=== PATIENT | female | born 1950 | race American Indian/Alaskan Native ===

== ENCOUNTER 2021-10-22 19:43 | Emergency (ER) | payer MEDICAID ==
[2021-10-22 20:02] VITALS: BP 115/79
[2021-10-22 20:30] LABS: Basophils % (Auto) 0.1 % (0.0-1.8); Eosinophils % (Auto) 0.1 % (0.0-4.3); Hematocrit 38.3 % (30.3-42.9); Mean Corpuscular HGB Conc 34 % (30-34); Mean Corpuscular Volume 87 fl (79-97); Monocytes # (Auto) 0.6 K/mm3 (0.0-0.8); Monocytes % (Auto) 4.5 % (0.0-7.3); Platelet Count 302 K/mm3 (140-440); Red Cell Distribution Width 13.4 % (13.2-15.2)
[2021-10-22 20:54] LABS: Albumin 4.1 g/dL (3.9-5); Calcium 9.7 mg/dL (8.4-10.2)
--- NOTE | 2021-10-22 21:13 | XRay Report ---
CHEST 2 VIEWS INDICATION / CLINICAL INFORMATION: Chest Pain. COMPARISON: None available. FINDINGS: SUPPORT DEVICES: None. HEART / MEDIASTINUM: There is mediastinal widening. The thoracic aorta appears aneurysmal lateral jacey st radiograph. LUNGS / PLEURA: No significant pulmonary or pleural abnormality. No pneumothorax. ADDITIONAL FINDINGS: 2.5 x 1.7 cm density along the right lateral breast. IMPRESSION: 1. Mediastinal widening with apparent thoracic aortic aneurysm. Further evaluation with dedicated CTA of the chest timed for evaluation of the aorta is recommended to evaluate for acute aortic injury. 2. 2.5 x 1.7 cm density within the right lateral breast, possibly representing breast mass. Mammograp hic evaluation is recommended per CRITICAL RESULT: Mediastinal widening with thoracic aortic aneurysm. Time of Discovery (SENIOR SOFTWARE QUALITY ENGINEER/CDT): 8:04 PM Time of Communication (SENIOR SOFTWARE QUALITY ENGINEER/CDT): 8:07 PM Licensed Practitioner Receiving Report: Anton Garcia NP Read-Back Performed: Yes. Signer Name: Wayne Mendez MD Signed: 10/22/2021 9:09 PM Workstation Name: [id number]
[2021-10-22] MEDS ORDERED: SODIUM CHLORIDE 0.9% 1000 ML 1,000 ML IV ONE (21:31)
[2021-10-22] MEDS ORDERED: ONDANSETRON 4 MG/2 ML INJ IV ONE (21:32)
[2021-10-22] MEDS ORDERED: MORPHINE 4 MG/1 ML INJ IV ONE (21:32)
[2021-10-22] MEDS ORDERED: dexAMETHasone 4 MG/ML VIAL IV ONE (23:40)
[2021-10-22] MEDS ORDERED: diphenhydrAMINE 50 MG/ML VIAL IV ONE (23:41)
--- NOTE | 2021-10-23 00:01 | Cat Scan Report ---
CTA CHEST WITH CONTRAST INDICATION / CLINICAL INFORMATION: pain. TECHNIQUE: Axial CT images were obtained through the chest after injection of IV contrast. 3 plane HI P and/or 3D reconstructions were produced. All CT scans at this location are performed using CT dose reduction for ALARA by means of automated exposure control. COMPARISON: None available. FINDINGS: VASCULAR FINDINGS: PULMONARY ARTERY: Pulmonary artery is normal in size. No pulmonary artery embolus is demonstrated.. THORACIC AORTA: Suboptimal opacification secondary to evaluation for pulmonary artery embolus. Study performed without gated technique. The proximal arch is not well-visualized. Intramural hematoma/dis section extends from the proximal arch through the mid descending thoracic aorta. This measures up to 10 mm in thickness. The descending thoracic aorta is minimally enlarged measuring 3.7 [address] ansverse dimension mid chest. Distal arch measures up to 4 cm. Allowing for motion, the proximal arch measures approximately 4.1 cm. CORONARY ARTERY CALCIFICATION: Absent -- None. NONVASCULAR FINDINGS: LOWER NECK: Soft tissues and musculature of the lower neck demonstrate no significant abnormality. Sm all calcified thyroid nodules are suggested bilaterally. HEART: Heart size is normal. There is a small to moderate amount of high attenuation fluid compatible with hemopericardium measuring up to 10-11 mm in thickness. No specific abnormality of the heart is present to suggest cardiac etiology of hemopericardium. No ventricular aneurysm. No pseudoaneurysm. MEDIASTINUM / MRAIA T: No significant abnormality. ESOPHAGUS: No significant abnormality. LYMPH NODES: No adenopathy within the axilla, mediastinum, or maria t. LUNGS: No acute air space or interstitial disease. PLEURA: No pleural effusion. No pneumothorax. THORACIC SOFT TISSUES: No significant abnormality of the chest wall or upper thoracic musculature. BONES: No significant skeletal abnormalities. ADDITIONAL CHEST FINDINGS: None. UPPER ABDOMEN: No significant abnormality. IMPRESSION: 1. Probable type A aortic dissection with evidence of hemopericardium. Intramural hematoma/thin false lumen as detailed. Motion and nongated technique as well as timing of contrast bolus precludes furth er evaluation. 2. No CT evidence of pulmonary artery embolus. CRITICAL RESULT Time of Discovery (LINING PRESSER/CDT): 2246 hours Time of Communication (LINING PRESSER/CDT): 2247 hours Licensed Practitioner Receiving Report: Dr. Santizo Read-Back Performed: Yes. Extensive intramural hematoma of the aortic arch and descending thoracic aorta with small to moderate hemopericardium. Signer Name: Douglas Gr II, MD Signed: 10/22/2021 11:56 PM Workstation Name: [id number]
--- NOTE | 2021-10-23 00:13 | Emergency Department Report ---
ED General Adult HPI - General Chief complaint: Chest Pain Stated complaint: CHEAT PAINS/WEAKNESS Time Seen by Provider: 10/22/21 21:30 Source: patient Mode of arrival: Ambulatory Limitations: No Limitations - History of Present Illness Severity scale (0 -10): 8 - Related Data Allergies Allergy/AdvReac Type Severity Reaction Status Date / Time No Known Allergies Allergy Unverified 10/22/21 20:02 ED Review of Systems ROS: Stated complaint: CHEAT PAINS/WEAKNESS Other details as noted in HPI ED Physical Exam - General Limitations: No Limitations ED Course Vital Signs 10/22/21 19:59 Temperature 97.6 F Pulse Rate 91 H Respiratory 18 Rate Blood Pressure 115/79 [Right] O2 Sat by Pulse 100 Oximetry - Intubation Laryngoscope: fiberoptic video scope Size: 3 Assist Device Used: fiberoptic device ET Tube Size: 7.5 Tube Secured Depth (cm): 22 Tube Secured Location: lips Tube Placement Confirmation: visualized tube passing t, equal breath sounds bilat, no breath sounds over epi Patient Tolerated Procedure: well, no complications Intubation Complications: none ED Medical Decision Making - Lab Data Result diagrams: 10/22/21 20:17 10/22/21 20:17 Critical care attestation.: If time is entered above; I have spent that time in minutes in the direct care of this critically ill patient, excluding procedure time. ED Disposition Clinical Impression: Cardiac arrest, Dissecting aneurysm, Type 1 dissection of ascending aorta Disposition: 20 Is pt being admited?: No Does the pt Need Aspirin: No Condition: Undetermined
[2021-10-23 00:57] LABS: Chol/HDL Ratio 3.46 %
--- NOTE | 2021-10-25 09:34 | Electrocardiograph Report ---
[facility] Test Date: 2021-10-22 Test Time: 20:10:09 Pat Name: MALDONADO KHAN Department: Room: Gender: F Hospice Admitting Clerk: [employer] : 1950 Requested By: BAUDILIO LEACH Order Number: [id number] Reading MD: Jose Eduardo Avitia Measurements Intervals [place] Rate: 85 P: 69 MS: 173 QRS: -22 QRSD: 104 T: 80 QT: 416 QTc: 494 Interpretive Statements Sinus rhythm Atrial premature complex LVH with secondary repolarization abnormality Anterior Q waves, possibly due to LVH POSSIBLE ANTEROSEPTAL INFARCT WITH PRWP No previous ECG available for comparison Electronically Signed On 10-25-2021 9:33:16 EDT by Jose Eduardo Avitia
--- NOTE | 2021-10-25 09:43 | Electrocardiograph Report ---
[facility] Test Date: 2021-10-22 Test Time: 23:41:53 Pat Name: MALDONADO KHAN Department: Room: Gender: F Disintegrator: CTA : 1950 Requested By: BAUDILIO LEACH Order Number: [id number] Reading MD: Jose Eduardo Avitia Measurements Intervals [place] Rate: 66 P: 31 MN: 197 QRS: 41 QRSD: 133 T: 84 QT: 393 QTc: 411 Interpretive Statements Sinus rhythm IVCD. Anterolateral infarct, acute Compared to ECG 10/22/2021 20:10:09 Myocardial infarct finding now present Atrial premature complex(es) no longer present Left ventricular hypertrophy no longer present Early repolarization no longer present Electronically Signed On 10-25-2021 9:43:20 EDT by Jose Eduardo Avitia
== END 2021-10-23 05:09 ==
LOC: ED 19:43
DX: I46.9 Cardiac arrest, cause unspecified (principal); I71.00 Dissection of unspecified site of aorta
CPT/HCPCS: 31500; 36415; 71046; 71275; 80048; 80053; 80061; 84484; 85025; 93005; 96361; 96374; 96375; 99285; J1100; J1200; J2270; J2405; J7030; Q9967